=== PATIENT | male | born 1980 | race Hispanic/Latino ===

== ENCOUNTER → 2019-10-25 | Outpatient (CLI) | payer OTHER ==
--- NOTE | 2019-10-25 12:32 | Diagnostic Imaging Report ---
Examination: MRI SPINE LUMBAR WO CONTRAST History: ^RADICULOPATHY; low back pain with right leg pain for one year. Comparison studies: None Technique: Sagittal, coronal and axial T2 , sagittal T1 and STIR; axial spin density oblique. Findings: Number of lumbar vertebral bodies: Five. Alignment: Normal lordosis. No scoliosis. Soft tissues: No T2 hyperintense inflammatory changes. Posterior paraspinal soft tissues and muscles: No abnormality. Lower thoracic cord: Normal in signal and morphology. The tip of the conus is at T12-L1. Cauda equina: No masses. No arachnoiditis. Vertebrae: No fractures, infection or neoplasm. Degenerative changes: L1-L2: No abnormalities. L2-L3: Mild diffuse disc bulge and bilateral facet arthropathy result in mild right and moderate left neural foraminal narrowing. No canal stenosis. L3-L4: Asymmetric to the left disc bulge and bilateral facet arthropathy result in moderate left neural foraminal narrowing. No right foraminal or canal stenosis. L4-L5: Right central disc extrusion with inferior migration up to the inferior endplate of L5 superimposed on asymmetric to the right disc bulge results in mild bilateral neural foraminal narrowing and moderate canal stenosis. Part of the intensity of the extruded fragment is different from the parent disc and could represent a partially sequestered disc and measures 2 cm in craniocaudal dimension (series 3, image #6). There is impingement of the exiting right L4 and descending right L5 nerve roots. L5-S1: Small central disc protrusion. Bilateral facet arthropathy. No canal or foraminal stenosis. IMPRESSION: Degenerative changes from L2-L3 through L5-S1 with a right central disc extrusion with inferior migration at L4-L5 with possible partially sequestered disc as detailed above. This disc extrusion causes impingement of the exiting right L4 and descending right L5 nerve roots and moderate canal stenosis. This could be the cause of patient's right radicular symptoms. Moderate left foraminal narrowing at L2-L3 and L3-L4. Signed by: Dr. Coty Nunn M.D. on 10/25/2019 12:29 PM
== END ==
LOC: MRI 08:26
PROVIDERS: ATTEND Anesthesiology
DX: M54.16 Radiculopathy, lumbar region (principal)
CPT/HCPCS: 72148